=== PATIENT | female | born 1965 | race Two or more races ===

== ENCOUNTER 2020-08-01 05:47 | Day surgery (SDC) | payer OTHER | END 2020-08-01 13:30 | disposition home or self-care (01) | LOC: CIR.AMB 05:47 | PROVIDERS: ATTEND Obstetrics & Gynecology | DX: C54.1 Malignant neoplasm of endometrium (principal); Z20.828 Contact with and (suspected) exposure to other viral communicable diseases ==

== ENCOUNTER 2020-09-19 12:15 | Inpatient (IN) | payer OTHER ==
[~2020-09-19] VITALS: Ht 160 cm; Wt 84.4 kg
[2020-09-20] MEDS ORDERED: NEXIUM 24HR20 MG PO (08:09)
[2020-09-20] MEDS ORDERED: FLONASE16 GM (08:10)
== END 2020-09-30 13:04 | disposition home or self-care (01) | DRG 741 ==
LOC: OB/GYN 09-21 10:30 → O/R 09-28 06:51 → OB/GYN 09-28 08:55
PROVIDERS: ADMIT Specialist; ATTEND Specialist
PROC: 0UT24ZZ Resection of Bilateral Ovaries, Percutaneous Endoscopic Approach (ICD-10-PCS; 2020-09-28)
PROC: 0UT74ZZ Resection of Bilateral Fallopian Tubes, Percutaneous Endoscopic Approach (ICD-10-PCS; 2020-09-28)
PROC: 07BC4ZZ Excision of Pelvis Lymphatic, Percutaneous Endoscopic Approach (ICD-10-PCS; 2020-09-28)
PROC: 0UT94ZZ Resection of Uterus, Percutaneous Endoscopic Approach (ICD-10-PCS; principal; 2020-09-28 11:45)
DX: C54.1 Malignant neoplasm of endometrium (principal); N72 Inflammatory disease of cervix uteri; N83.312 Acquired atrophy of left ovary; N83.311 Acquired atrophy of right ovary; N80.2 Endometriosis of fallopian tube